=== PATIENT | male | born 1965 | race Hispanic/Latino ===

== ENCOUNTER 2020-02-18 14:10 | Inpatient (IN) | payer OTHER ==
[~2020-02-18] VITALS: Ht 175.3 cm; Wt 79.3 kg
[2020-02-18 14:44] LABS: BASOPHILS % (AUTO) 0.3 % (0.0-5.0); EOSINOPHILS % (AUTO) 0.8 % (0.0-8.0); HEMATOCRIT 47.8 % (42-54); LYMPHOCYTES % (AUTO) 10.3 % (21.0-51.0); MEAN CORPUSCULAR HGB CONC 33.3 g/dL (32.0-36.0); MEAN CORPUSCULAR VOLUME 90.2 fL (79-99); MONOCYTES % (AUTO) 4.8 % (3.0-13.0); NEUTROPHILS % (AUTO) 83.5 % (40.0-77.0); PLATELET COUNT (AUTO) 252 K/uL (130-400); RED CELL DISTRIBUTION WIDTH 12.5 % (11.0-15.5); WHITE BLOOD COUNT (AUTO) 14.8 K/uL (4.8-10.8)
[2020-02-18] MEDS ORDERED: ONDANSETRON HCL 4 MG/2 ML VIAL ONE (14:45)
[2020-02-18] MEDS ORDERED: MORPHINE SULFATE 4 MG/1ML SYG ONE (14:45)
[2020-02-18] MEDS ORDERED: KETOROLAC TROMETHAMINE 30MG/ML ONE (14:55)
[2020-02-18 14:56] LABS: CREATININE 1.3 mg/dL (0.5-1.5); POTASSIUM 4.1 mmol/L (3.5-5.1)
[2020-02-18 15:00] LABS: ALBUMIN 4.5 g/dL (3.5-5.0); BILIRUBIN,TOTAL 0.5 mg/dL (0.2-1.0); TOTAL PROTEIN, SERUM 7.9 g/dL (6.0-8.3)
[2020-02-18 19:23] LABS: APPEARANCE,URINE Clear (CLEAR); BILIRUBIN,URINE Negative (NEGATIVE); COLOR,URINE Yellow (YELLOW); GLUCOSE, URINE (UA) Negative (NEGATIVE); KETONES,URINE >=80 mg/dL (NEGATIVE); LEUKOCYTE ESTERASE ,URINE Negative (NEGATIVE); NITRATE,URINE Negative (NEGATIVE); OCCULT BLOOD,URINE Negative (NEGATIVE); PH,URINE 5.5 (5.0-8.0); PROTEIN,URINE Negative (NEGATIVE)
[2020-02-18 20:06] LABS: BACTERIA,URINE Few /HPF (None Seen); MUCUS,URINE Many LPF (None Seen); SQUAMOUS EPITHELIAL CELL,UR 0-2 /HPF (0-2)
[2020-02-18] MEDS ORDERED: ONDANSETRON HCL 4 MG/2 ML VIAL IV PRN (23:15)
[2020-02-18] MEDS: CEFTRIAXONE SODIUM 1 GM IVP SCH (23:30)
[2020-02-18] MEDS: HYOSCYAMINE SULFATE 0.125 MG TAB.SUBL SL SCH (23:30)
[2020-02-18] MEDS ORDERED: KETOROLAC TROMETHAMINE 15MG/ML IV PRN (23:30)
[2020-02-18] MEDS ORDERED: CEFTRIAXONE SODIUM 1 GM ONE (23:49)
[2020-02-18] MEDS ORDERED: HYOSCYAMINE SULFATE 0.125 MG TAB.SUBL SL ONE (23:50)
[2020-02-19 00:30] VITALS: BP 119/74
[2020-02-19] MEDS ORDERED: SODIUM CHLORIDE 0.9% 1000ML 1,000 ML IV ONE (00:43)
--- NOTE | 2020-02-19 01:00 | NUR ---
NEW PATIENT Admitted a 54 yr old male for persistent abdominal pain mostly in the epigastric area radiating to the rt upper quadrant. Denies any significant med history, denies taking any meds, no surgical hx. Patient from [place] [facility]. Kept on npo status, started on slow hydration with NS at 50 cc/hr. Talked about loose watery stools yesterday morning, with pending stool collection for PCR, c. diff +, place pt on contact isolation for now. Abdomen tender to touch in the mid epigastric area, no complaints of major discomfort at this time.
[2020-02-19 03:32] VITALS: BP 105/69
[2020-02-19 08:00] VITALS: BP 102/60
[2020-02-19 08:00] LABS: BASOPHILS % (AUTO) 0.4 % (0.0-5.0); EOSINOPHILS % (AUTO) 9.3 % (0.0-8.0); HEMATOCRIT 44.5 % (42-54); MEAN CORPUSCULAR HEMOGLOBIN 30.5 pg (27.0-33.0); MEAN CORPUSCULAR HGB CONC 32.8 g/dL (32.0-36.0); MEAN CORPUSCULAR VOLUME 92.9 fL (79-99); MONOCYTES % (AUTO) 8.4 % (3.0-13.0); NEUTROPHILS % (AUTO) 58.8 % (40.0-77.0); PLATELET COUNT (AUTO) 243 K/uL (130-400); RED BLOOD CELL COUNT(AUTO) 4.79 MIL/uL (4.50-6.20); RED CELL DISTRIBUTION WIDTH 12.5 % (11.0-15.5); WHITE BLOOD COUNT (AUTO) 7.7 K/uL (4.8-10.8)
[2020-02-19 08:15] LABS: ALBUMIN 3.4 g/dL (3.5-5.0); BILIRUBIN,TOTAL 0.5 mg/dL (0.2-1.0); CREATININE 1.2 mg/dL (0.5-1.5); POTASSIUM 3.9 mmol/L (3.5-5.1); TOTAL PROTEIN, SERUM 6.5 g/dL (6.0-8.3)
[2020-02-19] MEDS ORDERED: PANTOPRAZOLE 40 MG/VIAL IVP SCH (09:00)
[2020-02-19] MEDS: CEFTRIAXONE SODIUM 1 GM IVP SCH (10:27)
[2020-02-19 11:00] VITALS: BP 104/51
--- NOTE | 2020-02-19 15:27 | NUR ---
MET WITH PATIENT AT [facility] FOR DC PLANNING- PATIENT LIVES AT [facility]- HAS BEEN THERE THREE MONTHS, PRIOR WAS IN [facility]- IS REFUGEE FROM [place], WILL GO BACK TO [facility] AT DISCHARGE, PHONE NUMBER ON FACE SHEET TO BE CALLED, PT IS ACTIVE AND INDPENDENT, NO DME OR MOBILIY ISSUES, CM TO FOLLOW Addendum: 02/19/20 at 1530 by SHABANA ZHENG RN CM Amended: Links added.
[2020-02-19 16:00] VITALS: BP 111/62
[2020-02-19] MEDS: SODIUM CHLORIDE 0.9% 1000ML 1,000 ML IV SCH ×2 (17:38)
[2020-02-19 20:00] VITALS: BP 113/50
[2020-02-19] MEDS: HYOSCYAMINE SULFATE 0.125 MG TAB.SUBL SL SCH (23:30)
[2020-02-20] VITALS: BP 109/70
[2020-02-20] MEDS: CEFTRIAXONE SODIUM 1 GM IVP SCH ×2 (00:17→12:20)
[2020-02-20 04:00] VITALS: BP 113/76
[2020-02-20 05:23] LABS: BASOPHILS % (AUTO) 0.3 % (0.0-5.0); EOSINOPHILS % (AUTO) 13.3 % (0.0-8.0); HEMATOCRIT 40.8 % (42-54); LYMPHOCYTES % (AUTO) 33.4 % (21.0-51.0); MEAN CORPUSCULAR HEMOGLOBIN 30.6 pg (27.0-33.0); MEAN CORPUSCULAR HGB CONC 33.3 g/dL (32.0-36.0); MEAN CORPUSCULAR VOLUME 91.9 fL (79-99); MONOCYTES % (AUTO) 8.7 % (3.0-13.0); NEUTROPHILS % (AUTO) 44.2 % (40.0-77.0); PLATELET COUNT (AUTO) 225 K/uL (130-400); RED BLOOD CELL COUNT(AUTO) 4.44 MIL/uL (4.50-6.20); RED CELL DISTRIBUTION WIDTH 12.3 % (11.0-15.5); WHITE BLOOD COUNT (AUTO) 7.2 K/uL (4.8-10.8)
[2020-02-20 05:28] LABS: BILIRUBIN,TOTAL 0.5 mg/dL (0.2-1.0); POTASSIUM 3.7 mmol/L (3.5-5.1); TOTAL PROTEIN, SERUM 5.9 g/dL (6.0-8.3)
[2020-02-20 08:00] VITALS: BP 115/55
[2020-02-20] MEDS ORDERED: PANTOPRAZOLE SODIUM 40 MG TABLET.DR PO SCH (08:45)
[2020-02-20] MEDS: SODIUM CHLORIDE 0.9% 1000ML 1,000 ML IV SCH (09:29)
[2020-02-20] MEDS ORDERED: PANT40TA PO (10:34)
[2020-02-20 11:00] VITALS: BP 132/78
--- NOTE | 2020-02-20 15:36 | NUR ---
PATIENT DISCHARGE PATIENT DISCHARGE, IV DISCONTINUED, CATHLON INTACT, BLEEDING CONTROLLED, PATIENT TOLERATED WITHOUT INCIDENT. CALLED CONTACT "BRYAN" [phone] TO ADVISE PATIENT BEING DISCHARGED AND READY TO GO BACK TO [facility]. NO ANSWER, LEFT MESSAGE WITH CALL BACK INFORMATION.
== END 2020-02-20 16:45 | disposition home or self-care (01) | DRG 392 ==
LOC: EDH 14:10 → EDHIP 14:11 → 3AH 02-19 00:28
PROVIDERS: ADMIT Internal Medicine; ATTEND Internal Medicine
DX: K29.70 Gastritis, unspecified, without bleeding (principal); Z68.29 Body mass index [BMI] 29.0-29.9, adult; E66.9 Obesity, unspecified; D72.829 Elevated white blood cell count, unspecified; Z79.899 Other long term (current) drug therapy; Z88.0 Allergy status to penicillin; Z88.5 Allergy status to narcotic agent
CPT/HCPCS: 36415; 71046; 74176; 76705; 80053; 80061; 81001; 82550; 83690; 84484; 85025; 93005; C9113; G0378; J0696; J1885; J2270; J2405; J7030